=== PATIENT | female | born 1940 | race Caucasian/White ===

== ENCOUNTER 2016-07-28 15:33 | Inpatient (IN) | payer MEDICARE, OTHER ==
--- NOTE | ~2016-07-28 | HP ---
History And Physical [facility] [address] [place]. [address] NAME: CURTIS CRANDALL : 42 STATUS : ADM IN PAT#: [id number] AGE: 75 ADM/REG DATE : 07/28/16 MR#: [id number] REPORT SERV DATE: 07/28/16 DICTATED BY: AVA HAMMOND DATE: 07/28/16 REPORT STATUS : Draft TRANSCRIBED BY: DEVENDRA DATE: 07/28/16 DATE OF ADMISSION: 07/28/2016 CHIEF COMPLAINT: Comes in unresponsive from rehab facility. Unfortunately, records are not clear for etiology, and records been obtained from discharge summary from peers [facility] as well as her home facility and discussion with family over phone, daughter Ms Maria Dolores Romero who is currently in [place]. HISTORY OF PRESENT ILLNESS: The patient is a 75-year-old female, who has a past medical history of diabetes, Meniere disease, restless legs syndrome, hypertension has had recent extensive workup concerning for either common bile duct cancer versus a pancreatic cancer with final distinction of pancreatic cancer followed by Dr. Tarik Su who has had extensive hospitalization at [facility], over the last year has had gallbladder surgery, common bile duct stent for initial concern for gallbladder or biliary cancer, obtained second opinion per daughter's request and was diagnosed for head of pancreas cancer. The patient has trialed chemo but had resultant loss of platelets and required ICU stay for this and was undergoing radiation clinical trial with open wound pancreatic ablation under the care of Dr. Robles. The patient was reported to have tolerated it very successfully per daughter. This was done on 07/18/2016. She was walking, talking ambulatory. On 07/22/2016 midnight, the patient was reported to wanting to go to the restroom, however, had a fall and since been unresponsive. Workup for acute stroke, PE was performed at that time. The patient did have fall and has been unresponsive, was also intubated and concern for possible over- medication was noted. The patient did have short ICU stay but has since been able to be released. The patient was reported to have MRI and CT that was unrevealing the source, no issues. Daughter reports that since then she has not had any p.o. or significant p.o. intake and no bowel movement and does not actually recall her being conversant since the ICU stay. The patient was made arrangements for rehab facility and was at rehab, had been non- vocal there and had progressive nonverbal when daughter called facility, had still been essentially unresponsive and was transferred to [facility] per family's request for evaluation. Per daughter last p.o. intake that she can recall and bowel movement was on the 07/17/2016 and has not had any additional documented BM since then or p.o. intake. Additional review of systems have been incomplete secondary to patient's mental status for additional associated symptoms as the patient has was brought in with minimal information from facility, and EMS, and the patient is also unable to answer questions. The patient was given Narcan with minimal grimacing but was reported to not have any medications given today. Additionally, the patient has only said one word reporting no when being turned over to look at back for posterior stage wounds. Surgical site was reported to be clean without drainage but the patient unable to participate in questioning in a meaningful manner. Additional review of systems also negative per reports given from facility but 10 point can be incomplete secondary to patient's current mental status. PAST MEDICAL HISTORY: Obtained from daughter which include diabetes type 2, Meniere's disease, restless legs syndrome, and hypertension. History And Physical [address] [address] NAME: CURTIS CRANDALL : 42 STATUS : ADM IN [facility]#: [id number] AGE: 75 ADM/REG DATE : 07/28/16 MR#: [id number] REPORT SERV DATE: 07/28/16 DICTATED BY: AVA HAMMOND DATE: 07/28/16 REPORT STATUS : Draft TRANSCRIBED BY: MODSimran DATE: 07/28/16 SURGICAL HISTORY: Gallbladder, partial hysterectomy for ovarian cancer history, common bile duct stent, and pancreatic cancer surgery which was open, and pancreatic ablation. 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 was previously in . FAMILY HISTORY: Family history of GIBBONS in grandmother. Of note, the patient family also reports that the patient was previously on hospice but was taken off hospice in attempt to open pancreatic ablation and daughter who has power of emergency medicine reports that she is currently full code as she has tolerated prior intubation at most recent stay, and she reports that the patient has almost three times in the past but has been able to come back from those episodes. ALLERGIES: PENICILLIN. MEDICATIONS: Are reported benazepril, Decadron, Colace, Neurontin, Amaryl, Singulair, Zofran, oxybutynin, Roxicodone, Protonix, Compazine, Senokot, Zanaflex, and Creon. EKG: Normal sinus rhythm, rate 74, QTc 457. PHYSICAL EXAMINATION: VITAL SIGNS: The patient's blood pressure 127/44, temperature 98.2, pulse 60, respirations 20, O2 sats 93%on 2 L. GENERAL: Elderly, frail, unresponsive. EYES: Pupils equal, sluggish reaction with downward gaze. ENT: Nares patent but dry mucous membranes. Poor dentition. Difficult to assess posterior secondary to compliance, patient keeping jaw closed. RESPIRATORY: Decreased lower lung rothman. Otherwise, clear upper lung rothman. Regular rate. CHEST: Equal chest expansion. CV: Normal cardiac, no rubs. No pedal edema. No JVD. GI: Midline incision, clean dry with redundant skin. No bleeding or bruising. Does have mild rash at groin area. : Groin area with Mahmood. MUSCULOSKELETAL: Does have rigid component of hands and legs with mild asterixis reproducible with flapping tremor at times. This is symmetrical. SKIN: Incision clean dry with redundant skin in abdomen. LYMPH: No cervical lymphadenopathy. HEME: No bleeding or bruising. NEURO: Unresponsive, does have response except for moaning with deep stimulation and one word no with rotating but does have this essentially jerking type asterixis tremor in hands bilaterally, clutching of mouth and downward gaze with equal but sluggish eye responses. Pupil responds but complete neuro exam unable to performed secondary to mental status. PSYCH: Unable to be assessed. SKIN: Skin does have stage I bottom ulcer present at the coccyx. LABORATORY DATA: Lactate 1.6. UDS noted only for opioids. History And Physical [address] [address] NAME: CURTIS CRANDALL : 42 STATUS : ADM IN [facility]#: [id number] AGE: 75 ADM/REG DATE : 07/28/16 MR#: [id number] REPORT SERV DATE: 07/28/16 DICTATED BY: AVA HAMMOND DATE: 07/28/16 REPORT STATUS : Draft TRANSCRIBED BY: MODSimran DATE: 07/28/16 CT abdomen and pelvis, large volume ascites with moderate bilateral pleural effusions, anasarca below diaphragm. No acute intraabdominal process, no pneumoperitoneum or large retroperitoneal fluid, pancreatitis or breakdown of anastomosis. Brain without contrast, somewhat asymmetric scanning of the head, however, no intracranial pathology identified. No prior studies available. Urinalysis noted for large leukocyte esterase and large blood. CMP; sodium 138, potassium 5.0, BUN and creatinine 21 and 0.46. LFTs; AST ALT 35 and 18, lipase 20. Alkaline phosphatase 163. Troponin negative. Ammonia 59. CBC; WBC count 10.6, H and H 10.4 and 30.9, platelets 200, INR 1.4 not on any anticoagulation. ABG; pH 7.54, pCO2 of 23, pO2 of 68, bicarb 19.5. Chest portable, bilateral pleural effusions with perihilar edema and underlying cardiomegaly. ASSESSMENT AND PLAN: 1. Likely hepatic encephalopathy. 2. Urinary tract infection. 3. Unresponsiveness. 4. Pancreatic cancer. 5. Diabetes type 2. 6. Hypertension. 7. Restless legs syndrome. 8. Meniere's disease. 9. New ascites. 10.Fasciculations. PLAN: 1. For hepatic encephalopathy, she does not have any cirrhosis history but does have current ascites noted although this is also postop. Ammonia abnormally elevated. Family history of GIBBONS noted, does have fasciculations of asterixis type symptoms. I will do lactulose enemas, no BM since approximately 07/17/2016 per family member, has not had p.o. intake. We will have workup for encephalopathy and hepatitis panel. We will have Neurology also evaluate for additional differentials. Family has had imaging MRI performed at outside facility. 2. UTI; IV antibiotics, treat per culture. 3. Unresponsiveness. Differential includes urinary tract infection versus hepatic encephalopathy, however, this appears subacute on presentation. Per history, it appears to have happened since ICU stay at outside facility per family member. Holding all types of neuroleptic medications, benzo or opioids. The patient has been given Narcan in the emergency room with minimal results. We will monitor in IMCU. 4. Pancreatic cancer, has had trial treatment at [facility]. We will need to obtain records. 5. Diabetes type 2. A1c less than 6 approximately 5.1, good. I will place on Accu-Chek sliding scale level 1 and ProcalAmine at this time. History And Physical [facility] [place] [id number] [place]. [address] NAME: CURTIS CRANDALL : 42 STATUS : ADM IN PAT#: [id number] AGE: 75 ADM/REG DATE : 07/28/16 MR#: [id number] REPORT SERV DATE: 07/28/16 DICTATED BY: AVA HAMMOND DATE: 07/28/16 REPORT STATUS : Draft TRANSCRIBED BY: DEVENDRA DATE: 07/28/16 6. Hypertension, monitor. 7. Restless legs syndrome, holding home medications. 8. Meniere disease. Unable to assess secondary to mental status. 9. Ascites. Workup for liver. CT abdomen noted, lactulose enemas, appears clinically volume depleted intravascularly. 10.Fasciculations. Check ionized calcium, ammonia, and Neurology evaluation. I have discussed extensively case with the ER staff, review of records and daughter, the patient reports HEMALATHA Romero. The patient is full code although the patient was previously on hospice in the past but this was revoked after clinical trials. 11.Extremely guarded and critical condition. I discussed with the family who understands current situation. DDN/MODL Ava Hammond MD / [id number] CC: Misty Galvez M.D.
--- NOTE | ~2016-07-28 | DS ---
Discharge Summary [facility] [address] [place]. [address] NAME: CURTIS CRANDALL : 42 STATUS : DIS IN PAT#: [id number] AGE: 75 ADM/REG DATE : 07/28/16 MR#: [id number] REPORT SERV DATE: 07/31/16 DICTATED BY: AVA HAMMOND DATE: 07/30/16 REPORT STATUS : Draft TRANSCRIBED BY: MODL DATE: 07/30/16 ADMISSION DATE: 07/28/2016 DISCHARGE DATE: 07/30/2016 SUMMARY. DISCHARGE DIAGNOSES: 1. Subacute encephalopathy. 2. Abnormal urinalysis. 3. Lactic acidosis. 4. Elevated troponins. 5. Sinus tachycardia. 6. Hypoxic respiratory failure. 7. Ascites. 8. Diabetes. 9. Anasarca. 10.End-stage pancreatic cancer with recent clinical trial open wound pancreatic ablation. Of note, the patient was under hospice care up until 07/17, when she was revoked by the patient's POA, daughter, Maria Dolores Lopez, in order to perform trial surgery with open wound pancreatic ablation at [facility]. However, after seeing patient's prognosis, again family member who has flown in from [place] to be at bedside with the patient reenacted comfort measures. HOSPITAL COURSE: Please see H and P for complete details. HISTORY OF PRESENT ILLNESS: Briefly, Ms. Crandall was a 75-year-old female with end-stage pancreatic cancer, who was on hospice, who underwent recent open wound pancreatic ablation for palliative comfort and that she had tolerated the procedure, but had post care complications leading to encephalopathic state in which the patient was essentially unresponsive, was discharged to care home facility and upon arrival to care home facility, the patient had further decline and daughter who is POA requested transfer to [facility]. Upon arrival to [facility], the patient was essentially unresponsive with possible hepatic encephalopathy, UTI, was minimally responsive even to tactile stimulation. This check writer salesperson discussed complete details with the patient's family and extremely guarded prognosis. Family understood and made arrangements to come down to facility. Upon arrival to the facility, the patient continued to have further decline with respiratory compromise, having changes from room air to binasal cannula to non-rebreather, and finally on BiPAP with respiratory rates in the 40s. Heart rates became tachycardic. The patient had further elevations of lactate and troponins, which occurred over the next 24 hours and the patient was showing further signs of multi-organ failure likely secondary to end-stage pancreatic cancer. Family declined further MRI as the patient has had extensive workup, and requested to return back to comfort measures in order to honor mother's final wishes and to not pursue intubation for respiratory failure and also to remove BiPAP as this was no longer consistent with the patient's prior wishes. Daughter reported that although in her best interest to provide comfort, she did not believe this was not quality of life the patient was requesting. The patient was taken off BiPAP and comfort measures were Discharge Summary [place] [id number] [facility] [place]. [address] NAME: CURTIS CRANDALL : 42 STATUS : DIS IN PAT#: [id number] AGE: 75 ADM/REG DATE : 07/28/16 MR#: [id number] REPORT SERV DATE: 07/31/16 DICTATED BY: AVA HAMMOND DATE: 07/30/16 REPORT STATUS : Draft TRANSCRIBED BY: MODL DATE: 07/30/16 pursued in attempt to stop air hunger. The patient was kept comfortable under care of nursing staff physician and house chapter relations administrator. With family at bedside, the patient went comfortably at 07/30/2016. Family was at bedside. DDN/MODL Ava Hammond MD / [id number] CC: Rober Toth MD
[2016-07-28 16:35] LABS: BE (BASE EXCESS) -1.8 MEQ/L (0 +/- 2.5); CARBOXYHEMOGLOBIN 1.2 % (0-3); HCO3 (ACTUAL BICARBONATE) 19.5 MEQ/L (23-27); HEMOBLOGIN CONTENT 10.8 G/DL (12-16); INSTRUMENT SERIAL # 8087; METHEMOGLOBIN 0.2 % (0-3); O2 CONTENT 14.2 VOL% (18-24); OPERATOR ID 14335; PCO2 (CO2 TENSION) 23 MMHG (35-45); PO2 (O2 TENSION) 68 MMHG (79-93); SAMPLE Arterial; pH 7.54 (7.37-7.43)
[2016-07-28 16:36] LABS: BASOPHILS 0 %; EOSINOPHILS 0 %; HEMATOCRIT 30.9 % (36.0-48.0); HEMOGLOBIN 10.4 g/dL (12.0-16.0); IMMATURE GRANULOCYTES 0.3 %; IMMATURE GRANULOCYTES ABSOLUTE 0.03 10/3/uL (0.0-0.11); LYMPHOCYTES 12.8 %; LYMPHOCYTES ABSOLUTE 1.36 10/3/uL (0.67-4.30); MEAN CORPUS HGB CONC 33.7 g/dL (32.0-36.0); MEAN CORPUSCULAR VOLUME 86.1 fL (80-100); MEAN PLATELET VOLUME 11.4 fL (9.2-13.0); MONOCYTES 6.4 %; MONOCYTES ABSOLUTE 0.68 10/3/uL (0.21-1.20); NEUTROPHILS 80.5 %; NEUTROPHILS ABSOLUTE 8.52 10/3/uL (2.02-8.40); PLATELET COUNT 200 10/3/uL (150-400); RED CELL COUNT 3.59 10/6/uL (4.0-5.6); WHITE BLOOD CELLS 10.6 10/3/uL (4.5-10.5)
[2016-07-28 16:36] LABS: ALLENS TEST Pos
[2016-07-28 16:37] LABS: MANUAL DIFF NO %
[2016-07-28 16:45] LABS: INTERNATIONAL NORMAL RATI 1.4 UNITS (-); PROTIME (NOT ORD) 16.9 SEC (12.0-14.5)
[2016-07-28 16:54] LABS: ASCORBIC ACID (UR NOT ORDER) NEG (NEG); BILIRUBIN, URINE NEGATIVE (NEG); ER URINALYSIS TAT 0 Hrs 24 Mins; KETONE, URINE 20 MG/DL (NEG); LEUKOCYTE ESTERASE(NOT OR LARGE (NEG); NITRITE (URINE) NEG (NEG); WBC (NOT ORDERED) (RFLEX) 52 (0-5)
[2016-07-28 16:54] LABS: A/G RATIO 0.7 (0.7-1.9); ALBUMIN 2.2 G/DL (3.5-5.0); ALKALINE PHOSPHATASE 163 U/L (45-117); BUN (BLOOD UREA NITROGEN) 21 MG/DL (6-23); CHLORIDE, SERUM 101 MMOL/L (96-112); CO2 (CARBON DIOXIDE) 24 MMOL/L (24-34); CREATININE 0.46 MG/DL (0.55-1.02); GFR AFRICAN AMERICAN 114 ML/MIN (>=60); GFR NON AFRICAN AMERICAN 98 ML/MIN (>=60); GLUCOSE, SERUM 167 MG/DL (60-99); SGOT(AST) 35 U/L (5-40); SGPT(ALT) 18 U/L (5-65); SODIUM, SERUM 138 MMOL/L (135-148); TOTAL BILIRUBIN 0.9 MG/DL (0-1.2); TOTAL PROTEIN 5.2 G/DL (6.0-8.5); TROPONIN I <0.02 NG/ML (<0.05)
[2016-07-28] MEDS ORDERED: SENTAB PO (17:30)
[2016-07-28] MEDS ORDERED: ZOFRAN8 PO (17:32)
[2016-07-28] MEDS ORDERED: DSS PO (17:33)
[2016-07-28] MEDS ORDERED: ZANAFLEX 4 MG TA4 MG PO (17:33)
[2016-07-28] MEDS ORDERED: COMP10B PO (17:33)
[2016-07-28] MEDS ORDERED: PROTONIX20 MG PO (17:34)
[2016-07-28] MEDS ORDERED: NEUR300 PO (17:34)
[2016-07-28] MEDS ORDERED: OXYCOD PO (17:35)
[2016-07-28] MEDS ORDERED: CREON 24,000 UNIT PO (17:35)
[2016-07-28] MEDS ORDERED: DEX4 PO (17:35)
[2016-07-28] MEDS ORDERED: AMARYL2 PO (17:37)
[2016-07-28] MEDS ORDERED: SINGULAIR1 PO (17:37)
[2016-07-28] MEDS ORDERED: LOTE40 PO (17:37)
[2016-07-28] MEDS ORDERED: DITROPAN XL10 MG PO (17:38)
[2016-07-28 17:53] LABS: AMPHETAMINES (NOT ORD) NEG (NEG); BARBITURATES (NOT ORDERED NEG (NEG); BENZODIAZEPINES (NOT ORD) NEG (NEG); CANNABINOIDS (THC) NEG (NEG); COCAINE (NOT ORDERED) NEG (NEG); OPIATES POS (NEG); PHENCYCLIDINE(PCP) NEG (NEG); TRICYCLICS NEG (NEG)
[2016-07-28 21:56] LABS: PROCALCITONIN <0.05 ng/mL (<0.5)
[2016-07-28 22:02] LABS: GIANT PLATELET RARE; PLATELET ESTIMATE ADQ (ADEQUATE)
[2016-07-28 22:03] LABS: PLATELET SATELLITISM OCC
[2016-07-28 22:04] LABS: ANISOCYTOSIS 1+ (5-10/OIF) (0-5/OIF); RBC MORPHOLOGY ABN (NORMAL)
[2016-07-29 00:28] LABS: BASOPHILS 0.1 %; BASOPHILS ABSOLUTE 0.01 10/3/uL (0.0-0.16); EOSINOPHILS 0 %; HEMATOCRIT 33.7 % (36.0-48.0); HEMOGLOBIN 11.2 g/dL (12.0-16.0); IMMATURE GRANULOCYTES 0.3 %; IMMATURE GRANULOCYTES ABSOLUTE 0.04 10/3/uL (0.0-0.11); LYMPHOCYTES 5.9 %; MANUAL DIFF NO %; MEAN CORPUS HGB CONC 33.2 g/dL (32.0-36.0); MEAN CORPUSCULAR HEMOGLOB 28.6 pg (26.0-34.0); MEAN CORPUSCULAR VOLUME 86.2 fL (80-100); MEAN PLATELET VOLUME 11.1 fL (9.2-13.0); MONOCYTES 4.9 %; MONOCYTES ABSOLUTE 0.67 10/3/uL (0.21-1.20); NEUTROPHILS 88.8 %; NEUTROPHILS ABSOLUTE 12.02 10/3/uL (2.02-8.40); PLATELET COUNT 300 10/3/uL (150-400); RBC DISTRIBUTION WIDTH 18.1 % (12.0-16.0); RED CELL COUNT 3.91 10/6/uL (4.0-5.6); WHITE BLOOD CELLS 13.5 10/3/uL (4.5-10.5)
[2016-07-29 00:45] LABS: A/G RATIO 0.7 (0.7-1.9); ALBUMIN 2.3 G/DL (3.5-5.0); ALKALINE PHOSPHATASE 177 U/L (45-117); BUN (BLOOD UREA NITROGEN) 21 MG/DL (6-23); CALCIUM, SERUM 8.1 MG/DL (8.5-10.4); CHLORIDE, SERUM 100 MMOL/L (96-112); CO2 (CARBON DIOXIDE) 22 MMOL/L (24-34); CREATININE 0.55 MG/DL (0.55-1.02); GFR AFRICAN AMERICAN 107 ML/MIN (>=60); GFR NON AFRICAN AMERICAN 92 ML/MIN (>=60); GLOBULIN 3.1 G/DL (2.5-4.1); GLUCOSE, SERUM 170 MG/DL (60-99); POTASSIUM, SERUM 4.2 MMOL/L (3.5-5.3); SGOT(AST) 34 U/L (5-40); SGPT(ALT) 20 U/L (5-65); SODIUM, SERUM 138 MMOL/L (135-148); TOTAL BILIRUBIN 1.1 MG/DL (0-1.2); TOTAL PROTEIN 5.4 G/DL (6.0-8.5)
[2016-07-29 00:46] LABS: LACTATE 2.6 MMOL/L (0.3-2.4)
[2016-07-29 05:58] LABS: BASOPHILS 0.1 %; BASOPHILS ABSOLUTE 0.01 10/3/uL (0.0-0.16); EOSINOPHILS 0 %; HEMATOCRIT 31.2 % (36.0-48.0); HEMOGLOBIN 10.6 g/dL (12.0-16.0); IMMATURE GRANULOCYTES 0.3 %; IMMATURE GRANULOCYTES ABSOLUTE 0.05 10/3/uL (0.0-0.11); LYMPHOCYTES 2.6 %; MEAN CORPUSCULAR HEMOGLOB 29.2 pg (26.0-34.0); MEAN PLATELET VOLUME 10.6 fL (9.2-13.0); MONOCYTES 4.9 %; MONOCYTES ABSOLUTE 0.76 10/3/uL (0.21-1.20); NEUTROPHILS 92.1 %; NEUTROPHILS ABSOLUTE 14.23 10/3/uL (2.02-8.40); PLATELET COUNT 287 10/3/uL (150-400); RED CELL COUNT 3.63 10/6/uL (4.0-5.6); WHITE BLOOD CELLS 15.5 10/3/uL (4.5-10.5)
[2016-07-29 05:59] LABS: MANUAL DIFF NO %
[2016-07-29 06:08] LABS: A/G RATIO 0.7 (0.7-1.9); ALBUMIN 2.2 G/DL (3.5-5.0); ALKALINE PHOSPHATASE 170 U/L (45-117); BUN (BLOOD UREA NITROGEN) 21 MG/DL (6-23); CHLORIDE, SERUM 102 MMOL/L (96-112); CO2 (CARBON DIOXIDE) 21 MMOL/L (24-34); CREATININE 0.51 MG/DL (0.55-1.02); DIRECT BILIRUBIN 0.4 MG/DL (0.0-0.4); GFR AFRICAN AMERICAN 110 ML/MIN (>=60); GFR NON AFRICAN AMERICAN 95 ML/MIN (>=60); GLUCOSE, SERUM 195 MG/DL (60-99); INDIRECT BILIRUBIN(NOT ORDER) 0.5 MG/DL (0.1-0.9); PHOSPHORUS, SERUM 2.7 MG/DL (2.5-4.5); POTASSIUM, SERUM 3.9 MMOL/L (3.5-5.3); SGOT(AST) 31 U/L (5-40); SGPT(ALT) 21 U/L (5-65); SODIUM, SERUM 137 MMOL/L (135-148); TOTAL BILIRUBIN 0.9 MG/DL (0-1.2); TOTAL PROTEIN 5.2 G/DL (6.0-8.5); TROPONIN I <0.02 NG/ML (<0.05)
[2016-07-29 06:10] LABS: B NATRIURETIC PEPTIDE (BNP) 259.4 PG/ML (< 100.0)
[2016-07-29 19:57] LABS: BE (BASE EXCESS) -3.2 MEQ/L (0 +/- 2.5); CARBOXYHEMOGLOBIN 0.4 % (0-3); HCO3 (ACTUAL BICARBONATE) 18.2 MEQ/L (23-27); INSTRUMENT SERIAL # 8083; METHEMOGLOBIN 0.2 % (0-3); PCO2 (CO2 TENSION) 23 MMHG (35-45); PO2 (O2 TENSION) 66 MMHG (79-93); pH 7.52 (7.37-7.43)
[2016-07-29 19:58] LABS: ALLENS TEST Pos; DEVICE NRB; HEMOBLOGIN CONTENT 11.1 G/DL (12-16); O2 CONTENT 14.4 VOL% (18-24); OPERATOR ID 23712; SAMPLE Arterial
[2016-07-29 20:55] LABS: BASOPHILS 0.1 %; BASOPHILS ABSOLUTE 0.01 10/3/uL (0.0-0.16); EOSINOPHILS 0.1 %; EOSINOPHILS ABSOLUTE 0.01 10/3/uL (0.0-0.53); HEMATOCRIT 30.8 % (36.0-48.0); IMMATURE GRANULOCYTES 0.2 %; IMMATURE GRANULOCYTES ABSOLUTE 0.03 10/3/uL (0.0-0.11); LYMPHOCYTES 7.6 %; LYMPHOCYTES ABSOLUTE 0.94 10/3/uL (0.67-4.30); MEAN CORPUS HGB CONC 32.5 g/dL (32.0-36.0); MEAN CORPUSCULAR HEMOGLOB 27.6 pg (26.0-34.0); MEAN CORPUSCULAR VOLUME 85.1 fL (80-100); MEAN PLATELET VOLUME 11.2 fL (9.2-13.0); MONOCYTES 2.9 %; MONOCYTES ABSOLUTE 0.36 10/3/uL (0.21-1.20); NEUTROPHILS 89.1 %; NEUTROPHILS ABSOLUTE 10.96 10/3/uL (2.02-8.40); PLATELET COUNT 288 10/3/uL (150-400); RBC DISTRIBUTION WIDTH 18.2 % (12.0-16.0); RED CELL COUNT 3.62 10/6/uL (4.0-5.6); WHITE BLOOD CELLS 12.3 10/3/uL (4.5-10.5)
[2016-07-29 20:56] LABS: MANUAL DIFF NO %
[2016-07-29 21:08] LABS: BUN (BLOOD UREA NITROGEN) 20 MG/DL (6-23); CHLORIDE, SERUM 102 MMOL/L (96-112); CO2 (CARBON DIOXIDE) 24 MMOL/L (24-34); CREATININE 0.63 MG/DL (0.55-1.02); GFR AFRICAN AMERICAN 102 ML/MIN (>=60); GFR NON AFRICAN AMERICAN 88 ML/MIN (>=60); GLUCOSE, SERUM 234 MG/DL (60-99); POTASSIUM, SERUM 3.7 MMOL/L (3.5-5.3); SODIUM, SERUM 137 MMOL/L (135-148)
[2016-07-29 21:09] LABS: TROPONIN I 3.55 NG/ML (<0.05)
== END 2016-07-30 03:56 | disposition expired | DRG 435 ==
LOC: ER 15:33 → IMCU 19:27
PROVIDERS: Emergency Medicine; Internal Medicine
DX: C25.9 Malignant neoplasm of pancreas, unspecified (principal); J96.01 Acute respiratory failure with hypoxia; E87.2 Acidosis; N39.0 Urinary tract infection, site not specified; K72.90 Hepatic failure, unspecified without coma; E11.9 Type 2 diabetes mellitus without complications; I10 Essential (primary) hypertension; G25.81 Restless legs syndrome; H81.09 Meniere's disease, unspecified ear; Z51.5 Encounter for palliative care
CPT/HCPCS: 36600; 70450; 71010; 74000; 74176; 80048; 80053; 80305; 81001; 82140; 82248; 82330; 82805; 82962; 83605; 83615; 83690; 83735; 83880; 84100; 84145; 84443; 84484; 85025; 85610; 87040; 87077; 87086; 87186; 87449; 87641; 93005; 94640; 94660; 96374; 96375; 99285; A9270-GY; J0692; J1940; J2310; J2405; P9047